=== PATIENT | male | born 1940 | race Caucasian/White ===

== ENCOUNTER 2018-10-24 10:52 | Emergency (ER) | payer MEDICARE, OTHER ==
[2018-10-24 11:10] VITALS: BMI 25.2
[2018-10-24 11:12] VITALS: BP 120/72; PULSE 64; RESP 18; TEMP 98; O2SAT 97
[2018-10-24] MEDS ORDERED: Naproxen 550 mg Tab PO STA (11:45)
--- NOTE | 2018-10-24 11:47 | C.PDOC ---
History Of Present Illness 77 year old male presents to the ED for evaluation of dental pain that has been present for several months, but has been worsening. Patient states several of his teeth have fallen out. He has been unable to follow up with a dentist because of his insurance status. Patient is c/o pain particularly to his left upper tooth region. He denies fever, chills, mouth discharge or trauma. Time Seen by Provider: 10/24/18 11:16 Chief Complaint (Nursing): Dental Pain History Per: Patient History/Exam Limitations: no limitations Onset/Duration Of Symptoms: Hrs Current Symptoms Are (Timing): Worse Quality: Positive for: "Pain" Additional History Per: Patient Past Medical History Reviewed: Historical Data, Nursing Documentation, Vital Signs Vital Signs: Last Vital Signs Temp 98.0 F 10/24/18 11:10 Pulse 64 10/24/18 11:10 Resp 18 10/24/18 11:10 BP 120/72 10/24/18 11:10 Pulse Ox 97 10/24/18 11:10 - Medical History PMH: HTN, Hypercholesterolemia Surgical History: CABG (x4 as per patient), Coronary Stent Family History: States: Unknown Family Hx - Social History Hx Alcohol Use: No Hx Substance Use: No - Immunization History Hx Tetanus Toxoid Vaccination: No Hx Influenza Vaccination: Yes Hx Pneumococcal Vaccination: Yes Review Of Systems Constitutional: Negative for: Fever, Chills ENT: Positive for: Mouth Pain (dental pain, around left upper tooth). Negative for: Other (discharge ) Physical Exam - Physical Exam Appears: Non-toxic, No Acute Distress, Other (comfortable ) Skin: Normal Color, Warm, Dry Head: Atraumatic, Normacephalic Eye(s): bilateral: Normal Inspection Oral Mucosa: Moist Teeth: No Normal Dentition (very poor ), Caries (multiple ), Other (teeth number 15,17,20 are missing) Gingiva: Erythema (slight, around tooth number 20 ), Swelling (slight, around tooth number 20 ) Throat: Normal, No Erythema, No Exudate Neck: Supple Chest: Symmetrical, No Deformity, No Tenderness Cardiovascular: Rhythm Regular, No Murmur Respiratory: Normal Breath Sounds, No Rales, No Rhonchi, No Wheezing Extremity: Normal ROM, Capillary Refill (less than 2 seconds ) Neurological/Psych: Oriented x3, Normal Speech, Normal Cognition ED Course And Treatment O2 Sat by Pulse Oximetry: 97 (on RA) Pulse Ox Interpretation: Normal Progress Note: Amoxicillin PO and Naproxen PO given. On reassessment, patient is resting comfortably, showing no signs of distress and is stable for discharge. Patient will be given Rx for Amoxicillin and Naproxen. Advised patient to follow up with dentists in [facility] for further evaluation. Disposition Counseled Patient/Family Regarding: Diagnosis, Need For Followup, Rx Given - Disposition Referrals: [facility] [Outside] Disposition: HOME/ ROUTINE Disposition Time: 12:00 Condition: STABLE Additional Instructions: FOLLOW UP WITH DENTIST WITHIN 1 WEEK USE MEDICATIONS DIRECTED RETURN TO ER IF SYMPTOMS WORSEN Prescriptions: Amoxicillin 875 mg PO BID #14 tab Naproxen 375 mg PO BID PRN #20 tablet PRN Reason: pain Instructions: Tooth Decay, Adult, Dental Pain (DC) Forms: [employer] (Faroese) Print Language: YORUBA - Clinical Impression Clinical Impression: Dental caries, Tooth decay, Pain, dental - Scribe Statement The provider has reviewed the documentation as recorded by the Scribe (Ariane Saul) Provider Attestation: All medical record entries made by the Scribe were at my direction and personally dictated by me. I have reviewed the chart and agree that the record accurately reflects my personal performance of the history, physical exam, medical decision making, and the department course for this patient. I have also personally directed, reviewed, and agree with the discharge instructions and disposition.
[2018-10-24] MEDS ORDERED: Naproxen 550 mg Tab PO ONE (11:55)
== END 2018-10-24 11:55 | disposition home or self-care (01) ==
LOC: C.ER 10:52
DX: K02.9 Dental caries, unspecified (principal); I10 Essential (primary) hypertension; E78.00 Pure hypercholesterolemia, unspecified

== ENCOUNTER 2018-10-24 13:25 | Outpatient (CLI) | payer MEDICARE | END 2018-10-24 13:26 | disposition home or self-care (01) | LOC: C.USIC 13:26 | DX: N18.3 Chronic kidney disease, stage 3 (moderate) (principal) ==